=== PATIENT | female | born 1975 | race Two or more races ===

== ENCOUNTER 2016-11-15 20:51 | Emergency (ER) | payer SELFPAY ==
[2016-11-15 21:08] VITALS: RESP 16
[2016-11-15 22:12] LABS: % IMMATURE GRANULYOCYTES 0.3 % (0.0-1.1); ABSOLUTE IMMATURE GRANULOCYTES 0.03 10^3/uL (0.00-0.10); ADD DIFF? NO; ADD MORPH? YES; ADD SCAN? NO; ATYPICAL LYMPHOCYTE FLAG 0 (0-99); FRAGMENT RBC FLAG 40 (0-99); HEMATOCRIT 31.6 % (38.0-47.0); HEMOGLOBIN 9.5 g/dL (12.6-16.3); LEFT SHIFT FLG 0 (0-99); LIPEMIA HEMOLYSIS FLAG 80 (0-99); MEAN CELL HEMOGLOBIN 19.9 pg (27.9-34.1); MEAN CELL HEMOGLOBIN CONCENTR. 30.1 g/dL (32.4-36.7); MEAN PLATELET VOLUME 9.6 fL (8.7-11.7); PLATELET CLUMPS FLAG 10 (0-99); PLATELET COUNT 402 10^3/uL (150-400); RED BLOOD CELL COUNT 4.78 10^6/uL (4.18-5.33); RED CELL DISTRIBUTION WIDTH 19.5 % (11.5-15.2)
[2016-11-15 22:14] LABS: MEAN CELL VOLUME 66.1 fL (81.5-99.8)
[2016-11-15 22:22] LABS: ANION GAP 12 mEq/L (8-16); CALCIUM 9.7 mg/dL (8.5-10.4); CARBON DIOXIDE 23 mEq/l (22-31); CHLORIDE 101 mEq/L (97-110); CREATININE 0.6 mg/dL (0.6-1.0); GLOMERULAR FILTRATION RATE > 60; GLUCOSE 93 mg/dL (70-100); SODIUM 136 mEq/L (134-144)
[2016-11-15] MEDS ORDERED: NS 1,000 ML IV ONE (22:23)
[2016-11-15] MEDS ORDERED: ONDANSETRON 4 MG/2 ML VIAL IVP ONE (22:23)
--- NOTE | 2016-11-15 22:23 | EDPHY ---
H & P Stated Complaint: right sided abd pain, pain with urination, dizziness, nausea x4 days HPI/ROS: HPI CHIEF COMPLAINT: Back pain, urinary frequency, dysuria HISTORY OF PRESENT ILLNESS: This patient very pleasant 41-year-old female [place]uran-speaking only however daughter at bedside speaks fluent Peruvian and [place] in is okay with traction, she presents emergency room with 3-4 days of urinary frequency dysuria and now has bilateral CVA tenderness and back pain. Nausea but no vomiting. No fever. No chest pain no shortness of breath. No significant abdominal pain. Past Medical History: No medical history Past Surgical History: No surgical history Social History: Denies daily use drugs alcohol tobacco products. Lives locally in [place]. Works as a marketing analyst. Family History: Noncontributory ROS REVIEW OF SYSTEMS: A comprehensive 10 point review of systems is otherwise negative aside from elements mentioned in the history of present illness. Exam Constitutional appears well nontoxic, triage nursing summary reviewed, vital signs reviewed, awake/alert. Eyes normal conjunctivae and sclera, EOMI, PERRLA. HENT normal inspection, atraumatic, moist mucus membranes, no epistaxis, neck supple/ no meningismus, no raccoon eyes. Respiratory clear to auscultation bilaterally, normal breath sounds, no respiratory distress, no wheezing. Cardiovascular rate normal, regular rhythm, no murmur, no edema, distal pulses normal. Gastrointestinal soft, non-tender, no rebound, no guarding, normal bowel sounds, no distension, no pulsatile mass. Genitourinary very mild CVA tenderness bilaterally Musculoskeletal no midline vertebral tenderness, full range of motion, no calf swelling, no tenderness of extremities, no meningismus, good pulses, neurovascularly intact. Skin pink, warm, & dry, no rash, skin atraumatic. Neurologic awake, alert and oriented x 3, AAOx3, moves all 4 extremities equally, motor intact, sensory intact, CN II-XII intact, normal cerebellar, normal vision, normal speech. Psychiatric normal mood/affect. Heme/Lymph/Immune no lymphadenopathy. Differential Diagnosis: Includes but is not limited to in a particular order, cystitis, urinary tract infection, pyelonephritis, hydroureter, kidney stone, doubt acute appendicitis. Medical Decision Making: Plan for this patient IV establishment with blood work , check urinalysis, gentle IV hydration CT abd/pelvis w/o For flank pain. Re-evaluation: CT scan of the abdomen pelvis without IV contrast. The results of the study are negative for stone The study was read by Dr. Jose Bhatia. I viewed the images myself on the PACS system. [id number]: I did re-evaluate this patient this time she is resting comfortably she denies chest pain or shortness of breath. Her abdomen is soft nontender. She is feeling better after IV fluids nausea medicine. Blood work has been reviewed is unremarkable. CT scan does not show any evidence of kidney stone. Urinalysis no indication of UTI. Given that she is feeling better I will allow her to go home however she has been given return precautions understands return emergency room she develops worsening symptoms abdominal pain fever vomiting. Source: Patient - Personal History LMP (Females 10-55): 15-21 Days Ago Current Tetanus/Diphtheria Vaccine: Unsure Current Tetanus Diphtheria and Acellular Pertussis (TDAP): Unsure - Medical/Surgical History Hx Asthma: No Hx Chronic Respiratory Disease: No Hx Diabetes: No Hx Cardiac Disease: No Hx Renal Disease: No Hx Cirrhosis: No Hx Alcoholism: No Hx HIV/AIDS: No Hx Splenectomy or Spleen Trauma: No Other PMH: PSHx: . PMHx: denies - Social History Smoking Status: Never smoked Constitutional: Initial Vital Signs Temperature (C) 36.7 C 11/15/16 21:05 Heart Rate 83 11/15/16 21:05 Respiratory Rate 16 11/15/16 21:05 Blood Pressure 125/80 H 11/15/16 21:05 O2 Sat (%) 97 11/15/16 21:05 O2 Delivery Mode Room Air Allergies/Adverse Reactions: No Known Allergies Allergy (Verified 11/15/16 21:08) Home Medications: Medication Instructions Recorded NK [No Known Home Meds] 11/15/16 Medical Decision Making - Diagnostics Imaging Results: Imaging Impressions Abdomen/Pelvis CT 11/15/16 23:23 Impression: 1. No acute findings in the abdomen or pelvis. 2. Additional findings as above. Findings discussed with Fernando Pond MD 11/15/2016 at 23:49. Attention: This CT examination is specifically designed to evaluate patients who are clinically suspected of having acute obstructive uropathy. This examination does not use radiographic contrast, and as such, provides only a limited evaluation of the abdomen, pelvis and retroperitoneum. If there is further clinical suspicion for pathological conditions other than obstructive uropathy, a complete CT evaluation of the abdomen and pelvis utilizing intravenous and oral contrast should be considered. - Data Points Laboratory Results: Laboratory Results 11/15/16 21:45 11/15/16 21:45 11/15/16 11/15/16 11/15/16 21:45 21:45 21:45 WBC 8.78 10^3/uL 10^3/uL (3.80-9.50) RBC 4.78 10^6/uL 10^6/uL (4.18-5.33) Hgb 9.5 g/dL L g/dL (12.6-16.3) Hct 31.6 % L % (38.0-47.0) MCV 66.1 fL L fL (81.5-99.8) MCH 19.9 pg L pg (27.9-34.1) MCHC 30.1 g/dL L g/dL (32.4-36.7) RDW 19.5 % H % (11.5-15.2) Plt Count 402 10^3/uL H 10^3/uL (150-400) MPV 9.6 fL fL (8.7-11.7) Neut % (Auto) 57.4 % % (39.3-74.2) Lymph % (Auto) 35.0 % % (15.0-45.0) [place] % (Auto) 4.7 % % (4.5-13.0) Eos % (Auto) 2.3 % % (0.6-7.6) Baso % (Auto) 0.3 % % (0.3-1.7) Nucleat RBC Rel Count 0.0 % % (0.0-0.2) Absolute Neuts (auto) 5.04 10^3/uL 10^3/uL (1.70-6.50) Absolute Lymphs (auto) 3.07 10^3/uL H 10^3/uL (1.00-3.00) Absolute Monos (auto) 0.41 10^3/uL 10^3/uL (0.30-0.80) Absolute Eos (auto) 0.20 10^3/uL 10^3/uL (0.03-0.40) Absolute Basos (auto) 0.03 10^3/uL 10^3/uL (0.02-0.10) Absolute Nucleated RBC 0.00 10^3/uL 10^3/uL (0-0.01) Immature Gran % 0.3 % % (0.0-1.1) Immature Gran # 0.03 10^3/uL 10^3/uL (0.00-0.10) Platelet Estimate ADEQUATE (ADEQ) Polychromasia 1+ H Hypochromasia 1+ H Microcytic Cells 2+ H Smear Review By Pending Sodium 136 mEq/L mEq/L (134-144) Potassium 4.0 mEq/L mEq/L (3.5-5.2) Chloride 101 mEq/L mEq/L (97-110) Carbon Dioxide 23 mEq/l mEq/l (22-31) Anion Gap 12 mEq/L mEq/L (8-16) BUN 12 mg/dL mg/dL (7-23) Creatinine 0.6 mg/dL mg/dL (0.6-1.0) Estimated GFR > 60 Glucose 93 mg/dL mg/dL (70-100) Calcium 9.7 mg/dL mg/dL (8.5-10.4) Total Bilirubin 0.4 mg/dL mg/dL (0.1-1.4) Conjugated Bilirubin 0.4 mg/dL mg/dL (0.0-0.5) Unconjugated Bilirubin 0.0 mg/dL mg/dL (0.0-1.1) AST 29 IU/L IU/L (14-46) ALT 33 IU/L IU/L (9-52) Alkaline Phosphatase 60 IU/L IU/L (38-126) Total Protein 7.7 g/dL g/dL (6.3-8.2) Albumin 4.3 g/dL g/dL (3.5-5.0) Lipase 190 IU/L IU/L (23-300) Beta HCG, Qual Urine Color Urine Appearance Urine pH Ur Specific [place] Urine Protein Urine Ketones Urine Blood Urine Nitrate Urine Bilirubin Urine Urobilinogen Ur Leukocyte Esterase Urine RBC Urine WBC Ur Epithelial Cells Urine Mucus Urine Glucose 11/15/16 11/15/16 21:30 21:30 WBC RBC Hgb Hct MCV MCH MCHC RDW Plt Count MPV Neut % (Auto) Lymph % (Auto) [place] % (Auto) Eos % (Auto) Baso % (Auto) Nucleat RBC Rel Count Absolute Neuts (auto) Absolute Lymphs (auto) Absolute Monos (auto) Absolute Eos (auto) Absolute Basos (auto) Absolute Nucleated RBC Immature Gran % Immature Gran # Platelet Estimate Polychromasia Hypochromasia Microcytic Cells Smear Review By Sodium Potassium Chloride Carbon Dioxide Anion Gap BUN Creatinine Estimated GFR Glucose Calcium Total Bilirubin Conjugated Bilirubin Unconjugated Bilirubin AST ALT Alkaline Phosphatase Total Protein Albumin Lipase Beta HCG, Qual NEGATIVE Urine Color YELLOW Urine Appearance CLEAR Urine pH 5.0 (5.0-7.5) Ur Specific [place] 1.014 (1.002-1.030) Urine Protein NEGATIVE (NEGATIVE) Urine Ketones NEGATIVE (NEGATIVE) Urine Blood 1+ H (NEGATIVE) Urine Nitrate NEGATIVE (NEGATIVE) Urine Bilirubin NEGATIVE (NEGATIVE) Urine Urobilinogen NEGATIVE EU EU (0.2-1.0) Ur Leukocyte Esterase NEGATIVE (NEGATIVE) Urine RBC 1-3 /hpf /hpf (0-3) Urine WBC 1-3 /hpf /hpf (0-3) Ur Epithelial Cells TRACE /lpf /lpf (NONE-1+) Urine Mucus TRACE /lpf /lpf (NONE-1+) Urine Glucose NEGATIVE (NEGATIVE) Medications Given: Discontinued Medications Sodium Chloride (Ns) 1,000 mls @ 0 mls/hr IV EDNOW ONE; Wide Open PRN Reason: Protocol Stop: 11/15/16 22:24 Last Admin: 11/15/16 22:36 Dose: 1,000 mls Ondansetron HCl (Zofran) 4 mg IVP EDNOW ONE Stop: 11/15/16 22:24 Last Admin: 11/15/16 22:36 Dose: 4 mg Departure - Departure Disposition: Home, Routine, Self-Care Clinical Impression: Flank pain Condition: Good Instructions: Flank Pain (ED) Additional Instructions: 1. Return emergency room if develops worsening abdominal pain, flank pain vomiting nausea or any other concerning symptoms. Referrals: [facility] [Other] - As per Instructions
[2016-11-15 22:34] LABS: COLOR YELLOW; LEUKOCYTE ESTERASE,URINE NEGATIVE (NEGATIVE); NITRITE,URINE NEGATIVE (NEGATIVE)
[2016-11-15 22:39] LABS: ALBUMIN 4.3 g/dL (3.5-5.0); BILIRUBIN,TOTAL 0.4 mg/dL (0.1-1.4); BILIRUBIN-CONJUGATED 0.4 mg/dL (0.0-0.5); HYPOCHROMIA 1+; MICROCYTES 2+; PLATELET ESTIMATE ADEQUATE (ADEQ); POLYCHROMASIA 1+; TOTAL PROTEIN 7.7 g/dL (6.3-8.2)
[2016-11-15 22:49] LABS: MUCUS TRACE /lpf (NONE-1+)
[2016-11-15 23:09] VITALS: BP 127/75; PULSE 74; TEMP 97.7; O2SAT 100
== END 2016-11-16 | disposition home or self-care (01) ==
DX: R10.9 Unspecified abdominal pain (principal); E86.9 Volume depletion, unspecified
CPT/HCPCS: 96374; J2405

== ENCOUNTER 2017-06-23 10:44 | Emergency (ER) | payer MEDICAID, OTHER ==
--- NOTE | 2017-06-23 10:59 | CPEKG ---
Heart Rate: 56 RR Interval: 1071 P-R Interval: 144 QRSD Interval: 92 QT Interval: 480 QTC Interval: 464 P [place]: 43 QRS [place]: 33 T Wave [place]: 35 EKG Severity - NORMAL ECG - EKG Impression: SINUS RHYTHM Electronically Signed By: Marvin Richardson 23-Jun-2017 20:48:07
[2017-06-23] MEDS ORDERED: ONDANSETRON 4 MG/2 ML VIAL IVP ONE (11:36)
[2017-06-23] MEDS ORDERED: NS 1,000 ML IV ONE (11:36)
[2017-06-23 11:57] LABS: PLATELET COUNT 351 10^3/uL (150-400)
[2017-06-23] MEDS ORDERED: FAMOTIDINE 20 MG/NACL 50 ML IV ONE (13:33)
--- NOTE | 2017-06-23 13:38 | EDPHY ---
H & P Time Seen by Provider: 06/23/17 13:06 HPI/ROS: HPI Upper abdominal pain. 42-year-old female by private vehicle with family. This patient reports that at 10:00 a.m. She developed epigastric pain which she describes as sharp and burning and radiating to her left upper quadrant. On my evaluation she currently denies any significant pain but describes having a dull aching sensation in the left lower chest area. She had some associated shortness of breath with the pain earlier. She had nausea with several episodes of nonbilious, nonbloody vomiting. No diarrhea. No bloody or melenic stool. No urinary complaints. She is feeling much better at this time. She has never had this pain before. ROS: Constitutional: No fever, no chills. No weakness. Eyes: No discharge. No changes in vision. ENT: No sore throat. No nasal congestion or rhinorrhea. Respiratory: No cough. As above. Cardiac: As above, no palpitations. Gastrointestinal: As above, no diarrhea. Genitourinary: No hematuria. No dysuria or increased frequency with urination. Musculoskeletal: No back pain. No neck pain. No myalgias or arthralgias. Skin: No rashes. Neurological: No headache. No focal weakness or altered sensation. Past medical history: She denies any significant past medical history. She is not on any prescription medications. Social history: Here with family. Nonsmoker. No alcohol. Physical Exam: General Appearance: Alert, no distress. She appears comfortable at this time. Moderately obese habitus. This patient is responding to questions appropriately and in full sentences. This patient appears well-hydrated and well-nourished. Eyes: Pupils equal and round no pallor or injection. No lid edema, erythema or injection. Respiratory: There are no retractions, lungs are clear to auscultation with good air movement bilaterally. Cardiovascular: Regular rate and rhythm. No murmur. Gastrointestinal: Abdomen is soft and nontender, no masses, bowel sounds normal. No focal tenderness at McBurney's point. No [place] sign. Neurological: Motor sensory function is grossly intact. Cranial nerves are normal. Gait is normal. Skin: Warm and dry, no rashes. Musculoskeletal: Neck is supple and nontender. Extremities are symmetrical. All joints range without pain or impingement. Psychiatric: No agitation. No depression. Database: EKG: EKG time is 10:57 a.m.; EKG shows a narrow complex normal sinus rhythm with a ventricular rate of 56. The NM, QRS, QT intervals are within normal limits. There are no ST-T wave changes indicative of ischemic or injury pattern. No evidence of right heart strain. Interpreted by me. Imaging: Chest x-ray PA and lateral; the cardiac mediastinal silhouette is unremarkable. No evidence of infiltrate or pneumothorax. No acute cardiopulmonary disease process noted. Interpreted by me. Procedures: Emergency department course: IV placed. She was placed on a case monitor. Vital signs reviewed and are normal. She is currently pain-free. She had 1 L of IV normal saline given to her in triage. She had 4 mg of IV Zofran given to her. EKG obtained and reviewed by myself. After my evaluation she was given 20 mg of IV Pepcid. 3:30 p.m., patient re-evaluated. Resting comfortably. She has had complete resolution of her symptoms. She has had no pain. Results of her workup discussed with her. She has a 5 hr troponin which is negative. She feels comfortable going home and I feel she is safe for discharge. Follow-up and return to emergency department precautions have been discussed with her. I will place her on Protonix daily. Return to emergency department precautions reviewed. All of her questions were answered. She was discharged in good condition with her family. Differential Diagnosis: The differential diagnosis on this patient includes but is not limited to gastritis, pancreatitis. Cholecystitis, acute coronary syndrome, pulmonary embolism, nephrolithiasis unlikely. This represents a partial list of diagnoses considered. These considerations are based on history, physical exam , past history, reassessment and diagnostic testing. Smoking Status: Never smoked Constitutional: Initial Vital Signs Temperature (C) 36.5 C 06/23/17 10:45 Heart Rate 60 06/23/17 10:45 Respiratory Rate 20 06/23/17 10:45 Blood Pressure 117/66 06/23/17 10:45 O2 Sat (%) 100 06/23/17 10:45 O2 Delivery Mode Room Air Allergies/Adverse Reactions: No Known Allergies Allergy (Verified 11/15/16 21:08) Home Medications: Medication Instructions Recorded Pantoprazole Sodium [Protonix] 40 mg PO DAILY #30 tab 06/23/17 Medical Decision Making - Diagnostics Imaging Results: Imaging Impressions Chest X-Ray 06/23/17 13:33 Impression: Normal. - Data Points Laboratory Results: Laboratory Results 06/23/17 11:25 06/23/17 11:25 06/23/17 06/23/17 06/23/17 14:04 14:04 11:25 WBC RBC Hgb Hct MCV MCH MCHC RDW Plt Count MPV Neut % (Auto) Lymph % (Auto) [place] % (Auto) Eos % (Auto) Baso % (Auto) Nucleat RBC Rel Count Absolute Neuts (auto) Absolute Lymphs (auto) Absolute Monos (auto) Absolute Eos (auto) Absolute Basos (auto) Absolute Nucleated RBC Immature Gran % Immature Gran # Platelet Estimate Polychromasia Hypochromasia Microcytic Cells Elliptocytes Smear Review By PT 14.1 SEC SEC (12.0-15.0) INR 1.07 (0.83-1.16) APTT 27.5 SEC SEC (23.0-38.0) D-Dimer < 0.27 ug/mLFEU ug/mLFEU (0.00-0.50) Sodium Potassium Chloride Carbon Dioxide Anion Gap BUN Creatinine Estimated GFR Glucose Calcium Total Bilirubin Conjugated Bilirubin Unconjugated Bilirubin AST ALT Alkaline Phosphatase Creatine Kinase CK-MB (CK-2) Fraction Troponin I Total Protein Albumin Lipase Beta HCG, Qual NEGATIVE Urine Color YELLOW Urine Appearance CLEAR Urine pH 5.0 (5.0-7.5) Ur Specific [place] 1.020 (1.002-1.030) Urine Protein NEGATIVE (NEGATIVE) Urine Ketones NEGATIVE (NEGATIVE) Urine Blood NEGATIVE (NEGATIVE) Urine Nitrate NEGATIVE (NEGATIVE) Urine Bilirubin NEGATIVE (NEGATIVE) Urine Urobilinogen NEGATIVE EU EU (0.2-1.0) Ur Leukocyte Esterase NEGATIVE (NEGATIVE) Urine Glucose NEGATIVE (NEGATIVE) 06/23/17 06/23/17 06/23/17 11:25 11:25 11:25 WBC 8.58 10^3/uL 10^3/uL (3.80-9.50) RBC 4.80 10^6/uL 10^6/uL (4.18-5.33) Hgb 9.1 g/dL L g/dL (12.6-16.3) Hct 31.1 % L % (38.0-47.0) MCV 64.8 fL L fL (81.5-99.8) MCH 19.0 pg L pg (27.9-34.1) MCHC 29.3 g/dL L g/dL (32.4-36.7) RDW 20.4 % H % (11.5-15.2) Plt Count 351 10^3/uL 10^3/uL (150-400) MPV 9.3 fL fL (8.7-11.7) Neut % (Auto) 64.3 % % (39.3-74.2) Lymph % (Auto) 31.0 % % (15.0-45.0) [place] % (Auto) 3.0 % L % (4.5-13.0) Eos % (Auto) 1.2 % % (0.6-7.6) Baso % (Auto) 0.2 % L % (0.3-1.7) Nucleat RBC Rel Count 0.0 % % (0.0-0.2) Absolute Neuts (auto) 5.51 10^3/uL 10^3/uL (1.70-6.50) Absolute Lymphs (auto) 2.66 10^3/uL 10^3/uL (1.00-3.00) Absolute Monos (auto) 0.26 10^3/uL L 10^3/uL (0.30-0.80) Absolute Eos (auto) 0.10 10^3/uL 10^3/uL (0.03-0.40) Absolute Basos (auto) 0.02 10^3/uL 10^3/uL (0.02-0.10) Absolute Nucleated RBC 0.00 10^3/uL 10^3/uL (0-0.01) Immature Gran % 0.3 % % (0.0-1.1) Immature Gran # 0.03 10^3/uL 10^3/uL (0.00-0.10) Platelet Estimate ADEQUATE (ADEQ) Polychromasia 1+ H Hypochromasia 1+ H Microcytic Cells 2+ H Elliptocytes 1+ H Smear Review By Pending PT INR APTT D-Dimer Sodium 142 mEq/L mEq/L (135-145) Potassium 3.9 mEq/L mEq/L (3.5-5.2) Chloride 108 mEq/L mEq/L (97-110) Carbon Dioxide 23 mEq/l mEq/l (22-31) Anion Gap 11 mEq/L mEq/L (8-16) BUN 13 mg/dL mg/dL (7-23) Creatinine 0.6 mg/dL mg/dL (0.6-1.0) Estimated GFR > 60 Glucose 122 mg/dL H mg/dL (70-100) Calcium 9.2 mg/dL mg/dL (8.5-10.4) Total Bilirubin 0.6 mg/dL mg/dL (0.1-1.4) Conjugated Bilirubin 0.5 mg/dL mg/dL (0.0-0.5) Unconjugated Bilirubin 0.1 mg/dL mg/dL (0.0-1.1) AST 27 IU/L IU/L (14-46) ALT 34 IU/L IU/L (9-52) Alkaline Phosphatase 40 IU/L IU/L (38-126) Creatine Kinase 126 IU/L IU/L (0-156) CK-MB (CK-2) Fraction 2.50 ng/mL ng/mL (0.00-3.19) Troponin I < 0.012 ng/mL ng/mL (0.000-0.034) Total Protein 7.4 g/dL g/dL (6.3-8.2) Albumin 4.0 g/dL g/dL (3.5-5.0) Lipase 102 IU/L IU/L (23-300) Beta HCG, Qual Urine Color Urine Appearance Urine pH Ur Specific [place] Urine Protein Urine Ketones Urine Blood Urine Nitrate Urine Bilirubin Urine Urobilinogen Ur Leukocyte Esterase Urine Glucose Medications Given: Discontinued Medications Sodium Chloride (Ns) 1,000 mls @ 0 mls/hr IV ONCE ONE PRN Reason: Wide Open Stop: 06/23/17 11:37 Last Admin: 06/23/17 11:45 Dose: 1,000 mls Famotidine/Sodium Chloride (Pepcid 20 Mg (Premix)) 50 mls @ 200 mls/hr IV EDNOW ONE Stop: 06/23/17 13:47 Last Admin: 06/23/17 13:54 Dose: 50 mls Ondansetron HCl (Zofran) 4 mg IVP EDNOW ONE Stop: 06/23/17 11:37 Last Admin: 06/23/17 11:45 Dose: 4 mg Departure - Departure Disposition: Home, Routine, Self-Care Clinical Impression: Epigastric abdominal pain Condition: Good Instructions: Gastritis (ED), Acute Nausea and Vomiting (ED) Additional Instructions: Read and follow provided instructions. Follow-up with your primary care physician early next week for re-evaluation. Take medication as prescribed to control the acid production in your stomach. Return to the emergency department for worsening symptoms, worsening abdominal pain, vomiting and inability to keep fluids down, fever, blood in your stool or other serious concerns. Referrals: NONE *PRIMARY CARE P,. [Primary Care Provider] - As per Instructions Prescriptions: Pantoprazole Sodium [Protonix] 40 mg PO DAILY #30 tab Print Language: Czech
[2017-06-23 13:50] LABS: CREATINE KINASE 126 IU/L (0-156)
[2017-06-23 14:19] LABS: INR 1.07 (0.83-1.16); PROTIME(PATIENT) 14.1 SEC (12.0-15.0)
[2017-06-23 16:13] VITALS: BP 143/78
== END 2017-06-23 16:08 | disposition home or self-care (01) ==
DX: R10.13 Epigastric pain (principal); R11.10 Vomiting, unspecified
CPT/HCPCS: 96365; J2405